=== PATIENT | female | born 1930 | race Hispanic/Latino ===

== ENCOUNTER 2016-11-22 07:20 | Inpatient (IN) | payer MEDICARE ==
[2016-11-22] MEDS ORDERED: DUONEB 0.5 MG-3 MG/3 ML SOLN IH ONE (07:53)
[2016-11-22] MEDS ORDERED: APRESOLINE IV ONE (07:55)
--- NOTE | 2016-11-22 07:55 | Emergency Department Report ---
HPI - General Chief Complaint: Dyspnea/Respdistress Time Seen by Provider: 11/22/16 07:40 - HPI HPI: This is a 86-year-old female who presents to the emergency department by EMS with complaint of shortness of breath that she says has been getting progressively worse over the past week. She denies any chest discomfort. Patient is a poor historian. She says she is from [place] but is visiting here because her son has recently. However the patient is on [place] and appears to have a history of dementia and is AAO [address] but not time. She is unable to recall her list of past medical history but on top of dementia and appears to include hypertension at least. Does not appear that the patient got any treatment by EMS other than some supplemental oxygen. Patient says her primary care doctor is back in [place]. ED Past Medical Hx - Past Medical History Hx Hypertension: Yes Hx Dementia: Yes - Medications Home Medications: Home Medications Medication Instructions Recorded Confirmed Last Taken Type Amlodipine Besylate [Norvasc] 2.5 mg PO DAILY 11/22/16 11/22/16 Unknown History Aspirin EC [Aspirin Enteric Coated 81 mg PO QDAY 11/22/16 11/22/16 Unknown History TAB] Atorvastatin Calcium [Lipitor] 20 mg PO QHS 11/22/16 11/22/16 Unknown History Benzonatate [Tessalon Perles] 200 mg PO Q8HR 11/22/16 11/22/16 Unknown History Carvedilol [Coreg] 12.5 mg PO BID 11/22/16 11/22/16 Unknown History Folic Acid [Folvite] 1 mg PO QDAY 11/22/16 11/22/16 Unknown History Furosemide [Lasix] 20 mg PO QDAY 11/22/16 11/22/16 Unknown History Isosorbide Dinitrate 30 mg PO BID 11/22/16 11/22/16 Unknown History Levothyroxine [Synthroid] 50 mcg PO QAM 11/22/16 11/22/16 Unknown History Loperamide [Imodium] 2 mg PO QDAY 11/22/16 11/22/16 Unknown History Memantine HCl [Namenda] 5 mg PO QDAY 11/22/16 11/22/16 Unknown History ED Review of Systems ROS: Stated complaint: SOB Other details as noted in HPI Comment: All other systems reviewed and negative Constitutional: denies: chills, fever Eyes: denies: eye pain, eye discharge, vision change ENT: denies: ear pain, throat pain Respiratory: cough, shortness of breath, wheezing Gastrointestinal: denies: abdominal pain, nausea, diarrhea Genitourinary: denies: urgency, dysuria, discharge Musculoskeletal: denies: back pain, joint swelling, arthralgia Skin: denies: rash, lesions Neurological: denies: headache, weakness, paresthesias Physical Exam - Physical Exam Vital Signs: Vital Signs 11/22/16 07:32 Temperature 97.7 F Pulse Rate 63 Blood Pressure 196/62 O2 Sat by Pulse 98 Oximetry Physical Exam: GENERAL: The patient is well-developed well-nourished. Patient is elderly appearing. HEENT: Normocephalic. Atraumatic. Extraocular motions are intact. Patient has moist mucous membranes. Pupils equal reactive to light bilaterally. NECK: Supple. Trachea is midline. CHEST/LUNGS: Coarse breath sounds throughout the chest. Patient has some tachypnea but no accessory muscle use. There is no respiratory distress noted. HEART/CARDIOVASCULAR: Regular. There is no tachycardia. There is no gallop rub or murmur. ABDOMEN: Abdomen is soft, nontender. Patient has normal bowel sounds. There is no abdominal distention. SKIN: There is no rash. There is no edema. There is no diaphoresis. NEURO: Patient is AAO [address] but not time. The patient is cooperative. The patient has no focal neurologic deficits. The patient has normal speech. MUSCULOSKELETAL: There is no tenderness or deformity. There is no limitation range of motion. There is no evidence of acute injury. ED Course Vital Signs 11/22/16 07:32 Temperature 97.7 F Pulse Rate 63 Blood Pressure 196/62 O2 Sat by Pulse 98 Oximetry ED Medical Decision Making - Lab Data Result diagrams: 11/22/16 08:04 11/22/16 08:04 - EKG Data -: EKG Interpreted by Me - EKG Data When compared to previous EKG there are: previous EKG unavailable Interpretation: other (ventricular paced rhythm, prolonged MO interval, no ST elevation IL) - Radiology Data Radiology results: report reviewed, image reviewed interpreted by me: Chest x-ray shows hyperinflation along and some signs of interstitial lung disease consistent with COPD. VQ scan is low probability for pulmonary embolism. It appears more consistent with COPD - Medical Decision Making 86-year-old female presents to the emergency department by EMS with some shortness of breath. Patient appears very wet with coarse breath sounds that he can hear without a stethoscope. She has some tachypnea but she does not have any accessory muscle use. Patient was given some breathing treatments and oxygen supplementation and appears improved at that time. Patient's labs show some renal insufficiency, elevated an equivocal d-dimer and a BNP of greater than 18,000. Chest x-ray appears more consistent with COPD without any obvious pneumonia, pneumothorax or pleural effusions. A VQ scan was done for the elevated d-dimer that was low probability for PE. First troponin negative. Patient will be admitted to hospital for further evaluation and treatment of her COPD exacerbation and possible CHF exacerbation as well. She has been accepted for admission by the hospitalist service. - Differential Diagnosis COPD, PE, IL, CHF, pneumonia Critical Care Time: No Critical care attestation.: If time is entered above; I have spent that time in minutes in the direct care of this critically ill patient, excluding procedure time. ED Disposition Clinical Impression: COPD exacerbation, Hypertensive urgency, Renal insufficiency CHF (congestive heart failure) Qualifiers: Congestive heart failure type: unspecified congestive heart failure type Congestive heart failure chronicity: unspecified congestive heart failure chronicity Qualified Code(s): I50.9 - Heart failure, unspecified Dyspnea Qualifiers: Dyspnea type: unspecified Qualified Code(s): R06.00 - Dyspnea, unspecified Disposition: OP ADMITTED IP TO THIS HOSP Is pt being admited?: Yes Does the pt Need Aspirin: Yes Condition: Stable Instructions: Chronic Obstructive Pulmonary Disease (ED) Time of Disposition: 13:03
[2016-11-22 08:58] LABS: Basophils % (Auto) 0.3 % (0.0-1.8); Eosinophils % (Auto) 0.7 % (0.0-4.3); Hematocrit 31.4 % (30.3-42.9); Hemoglobin 10.4 gm/dl (10.1-14.3); INR 1.06 (0.87-1.13); Mean Corpuscular HGB Conc 33 % (30-34); Mean Corpuscular Hemoglobin 32 pg (28-32); Mean Corpuscular Volume 97 fl (79-97); Platelet Count 159 K/mm3 (140-440); Red Blood Count 3.23 M/mm3 (3.65-5.03); Red Cell Distribution Width 14.1 % (13.2-15.2)
[2016-11-22 08:59] LABS: Partial Thromboplastin Time 35.6 Sec. (24.2-36.6)
[2016-11-22 09:05] LABS: Creatine Kinase MB 2.3 ng/mL (0.0-4.0)
[2016-11-22 09:08] LABS: Alanine Aminotransferase 15 units/L (7-56); Albumin 3.4 g/dL (3.9-5); Albumin/Globulin Ratio 1.2 %; Alkaline Phosphatase 104 units/L (35-129); BUN/Creatinine Ratio 16.15; Bilirubin,Total 0.7 mg/dL (0.1-1.2); Blood Urea Nitrogen 21 mg/dL (7-17); Calcium 8.7 mg/dL (8.4-10.2); Carbon Dioxide 28 mmol/L (22-30); Chloride 101.7 mmol/L (98-107); Creatine Kinase 58 units/L (30-135); Glucose 118 mg/dL (65-100); Potassium 4.7 mmol/L (3.6-5.0); Sodium 141 mmol/L (137-145); Total Protein 6.2 g/dL (6.3-8.2)
[2016-11-22 09:16] LABS: Anion Gap 16 mmol/L
[2016-11-22 10:20] LABS: Bilirubin,Urine NEG (Negative); Blood,Urine SM (Negative); Ketones,Urine NEG (Negative); Leukocyte Esterase,Urine NEG (Negative); Nitrite,Urine NEG (Negative); Protein,Urine <15 mg/dL mg/dL (Negative); Urobilinogen,Urine < 2.0 mg/dL (<2.0); WBC,Urine < 1.0 /HPF (0.0-6.0)
[2016-11-22] MEDS ORDERED: LASIX IV ONE (10:38)
--- NOTE | 2016-11-22 11:48 | Nuclear Medicine Report ---
FINAL REPORT PROCEDURE: NM LUNG SCAN PERF/VENT TECHNIQUE: Consent was obtained. 5 millicuries technetium 99 M MAA was injected IV and multiplanar perfusion images of the lungs obtained. 15 millicuries xenon 133 gas was inhaled and planar ventilatory images of the lungs were submitted for review. HISTORY: SOB, elevated dimer COMPARISON: Chest one view 11/22/2016 FINDINGS: Heterogeneity of perfusion radiotracer as well as partial retention of ventilatory radiotracer suggests an element of COPD. There is no mismatched perfusion abnormality to suggest pulmonary infarct. The heart is enlarged. IMPRESSION: Suggested mild cardiomegaly and COPD. Low probability for pulmonary embolism.
[2016-11-22] MEDS ORDERED: MAGNESIUM SULFATE 2GM/50ML 50 ML IV ONE (11:59)
--- NOTE | 2016-11-22 13:02 | XRay Report ---
FINAL REPORT PROCEDURE: XR CHEST 1V AP TECHNIQUE: Chest radiograph anteroposterior view. CPT 77117 HISTORY: Dyspnea COMPARISON: None FINDINGS: Intracardiac device is in place as well as prior median sternotomy noted. The heart is mildly enlarged. There is no focal consolidation, pneumothorax or pleural fluid. Mild increased interstitial markings and flattening of diaphragms is present. There is no focal osseous abnormality. IMPRESSION: Mild cardiomegaly and suspected mild COPD..
[2016-11-22] MEDS ORDERED: BABY ASPIRIN PO ONE (13:04)
--- NOTE | 2016-11-22 23:54 | History and Physical Report ---
History of Present Illness Chief complaint: Difficulty breathing History of present illness: 86 YO Female with HTN, Dementia, Obesity, Hypothyroid, CHF presents to ED for evaluation. Pt states that she has been experiencing shortness of breath for the past week with worsening symptoms over the last 12 hours. Pt denies fever, chills, CP, Palpitations, NVD, Syncope, unintentional weight loss, night sweats , prolonged immobility/travel, individual/family history of DVT/PE. Pt unable to provide very detailed history. Pt mildly confused. Past History Past Medical History: heart failure, hypertension, hypothyroidism Past Surgical History: No surgical history, Other (reviewed) Social history: . denies: smoking, alcohol abuse, prescription drug abuse Family history: hypertension Medications and Allergies Allergies Allergy/AdvReac Type Severity Reaction Status Date / Time No Known Allergies Allergy Verified 11/23/16 00:28 Home Medications Medication Instructions Recorded Confirmed Last Taken Type Amlodipine Besylate [Norvasc] 2.5 mg PO DAILY 11/22/16 11/22/16 Unknown History Aspirin EC [Aspirin Enteric Coated 81 mg PO QDAY 11/22/16 11/22/16 Unknown History TAB] Atorvastatin Calcium [Lipitor] 20 mg PO QHS 11/22/16 11/22/16 Unknown History Benzonatate [Tessalon Perles] 200 mg PO Q8HR 11/22/16 11/22/16 Unknown History Carvedilol [Coreg] 12.5 mg PO BID 11/22/16 11/22/16 Unknown History Folic Acid [Folvite] 1 mg PO QDAY 11/22/16 11/22/16 Unknown History Furosemide [Lasix] 20 mg PO QDAY 11/22/16 11/22/16 Unknown History Isosorbide Dinitrate 30 mg PO BID 11/22/16 11/22/16 Unknown History Levothyroxine [Synthroid] 50 mcg PO QAM 11/22/16 11/22/16 Unknown History Loperamide [Imodium] 2 mg PO QDAY 11/22/16 11/22/16 Unknown History Memantine HCl [Namenda] 5 mg PO QDAY 11/22/16 11/22/16 Unknown History Review of Systems ROS unobtainable: due to mental status Exam - Constitutional Vitals: Temp Pulse Resp BP Pulse Ox 97.8 F 81 12 126/54 98 11/22/16 19:45 11/22/16 19:45 11/22/16 19:45 11/22/16 19:45 11/22/16 19:45 General appearance: Present: no acute distress - EENT Eyes: Present: PERRL ENT: hearing intact, clear oral mucosa - Neck Neck: Present: supple, normal ROM - Respiratory Respiratory: bilateral: diminished - Cardiovascular Heart Sounds: Present: S1 & S2. Absent: rub, click - Extremities Extremities: pulses symmetrical, No edema Extremity abnormal: edema Peripheral Pulses: within normal limits - Abdominal General gastrointestinal: Present: soft, non-tender, non-distended, normal bowel sounds Female genitourinary: Present: normal - Integumentary Integumentary: Present: clear, warm, dry - Musculoskeletal Musculoskeletal: generalized weakness - Psychiatric Psychiatric: no intact judgment & insight, no memory intact - Neurologic Neurologic: CNII-XII intact, no gait normal Results - Labs CBC & Chem 7: 11/22/16 08:04 11/23/16 00:18 Labs: Abnormal lab results 11/22/16 11/22/16 11/22/16 Range/Units 08:04 08:04 08:04 RBC 3.23 L (3.65-5.03) M/mm3 [place] % (Auto) 9.9 H (0.0-7.3) % D-Dimer 685.14 H (0-234) ng/mlDDU BUN 21 H (7-17) mg/dL Creatinine 1.3 H (0.7-1.2) mg/dL Glucose 118 H (65-100) mg/dL NT-Pro-B Natriuret Pep (0-900) pg/mL Total Protein 6.2 L (6.3-8.2) g/dL Albumin 3.4 L (3.9-5) g/dL TSH (0.270-4.200) mlU/mL Urine pH (5.0-7.0) 11/22/16 11/22/16 11/22/16 Range/Units 08:04 08:43 10:09 RBC (3.65-5.03) M/mm3 [place] % (Auto) (0.0-7.3) % D-Dimer (0-234) ng/mlDDU BUN (7-17) mg/dL Creatinine (0.7-1.2) mg/dL Glucose (65-100) mg/dL NT-Pro-B Natriuret Pep 23312 H (0-900) pg/mL Total Protein (6.3-8.2) g/dL Albumin (3.9-5) g/dL TSH 5.790 H (0.270-4.200) mlU/mL Urine pH 8.0 H (5.0-7.0) Assessment and Plan - Patient Problems (1) CHF (congestive heart failure) Current Visit: Yes Status: Acute Qualifiers: Congestive heart failure type: unspecified congestive heart failure type Congestive heart failure chronicity: unspecified congestive heart failure chronicity Qualified Code(s): I50.9 - Heart failure, unspecified Plan to address problem: CHF protocol: serial cardiac enzymes, telemetry, fluid restriction, supportive card, echo, monitor uop q shift, daily weights. diuresisD dimer, CTA chest (2) COPD exacerbation Current Visit: Yes Status: Acute Plan to address problem: supplemental o2,nebs, steroids, supportive care. (3) Accelerated hypertension Current Visit: Yes Status: Acute Plan to address problem: monitor bp q shift, continue current care. (4) Dementia Current Visit: Yes Status: Acute Plan to address problem: Chronic: continue current medication. (5) Renal insufficiency Current Visit: Yes Status: Acute Plan to address problem: gentle IVF, supportive care. (6) DVT prophylaxis Current Visit: Yes Status: Acute
[2016-11-23] MEDS ORDERED: MILK OF MAGNESIA PO PRN (00:06)
[2016-11-23] MEDS ORDERED: ZOFRAN IV PRN (00:06)
[2016-11-23] MEDS ORDERED: DULCOLAX PR PRN (00:06)
[2016-11-23] MEDS ORDERED: TYLENOL PO PRN (00:06)
[2016-11-23] MEDS ORDERED: ZITHROMAX 500 MG in NACL 0.9% 250ML 250 ML IV ONE (00:12)
[2016-11-23 00:43] LABS: BUN/Creatinine Ratio 15.33; Calcium 9.2 mg/dL (8.4-10.2)
[2016-11-23 00:44] LABS: Chloride 94.7 mmol/L (98-107); Potassium 4.6 mmol/L (3.6-5.0)
--- NOTE | 2016-11-23 01:28 | Admit Criteria Form ---
Admission Criteria Documentation: HEART FAILURE: COMMON COMPLICATIONS Clinical Indications for Inpatient Care (Place 'X' for any and all applicable criteria): Ongoing inpatient care may be indicated for heart failure with ANY ONE of the following (1)(2)(3)(4)(5): [ ]I. Ongoing need for care for primary condition requiring frequent therapy adjustments because of changes in cardiac function (eg, drug dosage changes for drugs that are renally metabolized) [ ]II. New-onset heart failure [ ]III. Heart failure with decreased urine output not responsive to attempts to optimize volume status [ ]IV. Acute cardiac ischemia causing or associated with failure [X ]V. Complications of heart failure, including ANY ONE of the following: [ ]a) Pericardial effusion [ ]b) Symptomatic pleural effusion [ ]c) O2 saturation <90% or PO2 < 60 mm Hg (8.0 kPa) on room air or require baseline supplemental O2 [ ]d) Tachypnea [ X]e) Dyspnea [ ]f) Syncope [ ]g) Change in mental status [ ]h) Acute renal insufficiency that is severe (reduction of more than 50% in estimated glomerular filtration rate from baseline) or progressive reduction of more than 25% in estimated glomerular filtration rate from baseline, with creatinine continuing to rise) [ ]i) Hemodynamic instability [ ]j) Anasarca [ ]k) Clinically significant metabolic abnormalities due to heart failure (eg, new-onset metabolic acidosis) Extended stay beyond goal length of stay for primary condition may be needed until ALL of the following are present(1)(3): [ ]a) Stable and effective diuretic regimen established (or patient on stable dialysis regimen if in chronic renal failure) [ ]b) Breathing comfortably at rest [ ]c) Saturation of arterial oxygen greater than 90% or at acceptable baseline [ ]d) Pulmonary edema absent or improved [ ]e) Hemodynamic stability [ ]f) Volume status acceptable on oral medication [ ]g) Peripheral or sacral edema absent or improved [ ]h) Renal function stable and manageable at a lower level of care [ ]i) Complications (eg, pleural effusion) resolved or manageable at a lower level of care [ ]j) Patient or caregiver has received written discharge instructions or educational material addressing activity level, diet, discharge medications, follow-up appointment, weight monitoring, and what to do if symptoms worsen The original [email or web address] content created by [employer] has been revised. The portions of the content which have been revised are identified through the use of italic text or in bold, and [facility] has neither reviewed nor approved the modified material.All other unmodified content is copyright [facility]. Please see references footnoted in the original [facility] edition 2016 Admission Criteria Met: Yes
[2016-11-23] MEDS: SYNTHROID PO SCH (05:48)
[2016-11-23] MEDS: TESSALON PERLES PO SCH ×3 (05:48→21:34)
[2016-11-23] MEDS ORDERED: SODIUM CHLORIDE FLUSH SYRINGE 10 ML IV PRN (07:40)
[2016-11-23] MEDS ORDERED: LASIX IV ONE (09:00)
[2016-11-23 09:03] LABS: Creatine Kinase MB 1.6 ng/mL (0.0-4.0)
[2016-11-23 09:05] LABS: Creatine Kinase 42 units/L (30-135)
[2016-11-23] MEDS ORDERED: NON-FORMULARY (Isosorbide Dinitrate [Isosorbide Dinitrate] 30 MG) PO SCH (10:00)
[2016-11-23] MEDS ORDERED: LASIX PO SCH (10:00)
[2016-11-23] MEDS ORDERED: NON-FORMULARY (Amlodipine Besylate [Norvasc] 2.5 MG) PO SCH (10:00)
[2016-11-23] MEDS ORDERED: MEMANTINE HCL 5 MG PO SCH (10:00)
[2016-11-23] MEDS: COREG PO SCH ×2 (11:18→21:33)
[2016-11-23] MEDS: FOLVITE PO SCH (11:18)
[2016-11-23] MEDS: HALFPRIN EC PO SCH (11:18)
[2016-11-23] MEDS: IMODIUM PO SCH (11:19)
[2016-11-23] MEDS: NAMENDA XR PO SCH (11:20)
[2016-11-23] MEDS: NORVASC PO SCH (11:20)
[2016-11-23] MEDS: ISORDIL TITRADOSE PO SCH ×2 (11:20→21:33)
[2016-11-23] MEDS ORDERED: PNEUMOVAX 23 IM ONE (12:00)
[2016-11-23] MEDS ORDERED: FLUARIX QUAD 2016-2017(36 MOS+) IM ONE (12:00)
[2016-11-23 13:45] LABS: Creatine Kinase MB 1.7 ng/mL (0.0-4.0)
--- NOTE | 2016-11-23 14:53 | Progress Note ---
Assessment and Plan Assessment and plan: 1. Acute Exacerbation of congestive heart failure-type is unspecified, follow -up with echocardiogram. Continue IV Lasix for diuresis. Acute myocardial infarction ruled out based on negative troponin. 2. COPD with acute exacerbation-continue nebulization treatments and steroids; add brovana 3. Accelerated hypertension- BP improving; cont meds and adjust as needed 4. Dementia- stable; cotn meds 5. ACute renal failure due to vasomotor nephropathy-start IVF for hydration; monitor; avoid nephrotoxins 6. DVT prophylaxis- heparin Hospitalist Physical - Constitutional Vitals: Temp Pulse Resp BP Pulse Ox 98.4 F 62 22 163/72 97 11/23/16 11:20 11/23/16 11:20 11/23/16 11:20 11/23/16 11:20 11/23/16 11:20 General appearance: Present: no acute distress Results - Labs CBC & Chem 7: 11/22/16 08:04 11/23/16 00:18 Labs: Laboratory Last Values WBC 5.0 K/mm3 (4.5-11.0) 11/22/16 08:04 RBC 3.23 M/mm3 (3.65-5.03) L 11/22/16 08:04 Hgb 10.4 gm/dl (10.1-14.3) 11/22/16 08:04 Hct 31.4 % (30.3-42.9) 11/22/16 08:04 MCV 97 fl (79-97) 11/22/16 08:04 MCH 32 pg (28-32) 11/22/16 08:04 MCHC 33 % (30-34) 11/22/16 08:04 RDW 14.1 % (13.2-15.2) 11/22/16 08:04 Plt Count 159 K/mm3 (140-440) 11/22/16 08:04 Lymph % (Auto) 27.0 % (13.4-35.0) 11/22/16 08:04 [place] % (Auto) 9.9 % (0.0-7.3) H 11/22/16 08:04 Eos % (Auto) 0.7 % (0.0-4.3) 11/22/16 08:04 Baso % (Auto) 0.3 % (0.0-1.8) 11/22/16 08:04 Lymph # 1.3 K/mm3 (1.2-5.4) 11/22/16 08:04 [place] # 0.5 K/mm3 (0.0-0.8) 11/22/16 08:04 Eos # 0.0 K/mm3 (0.0-0.4) 11/22/16 08:04 Baso # 0.0 K/mm3 (0.0-0.1) 11/22/16 08:04 Seg Neutrophils % 62.1 % (40.0-70.0) 11/22/16 08:04 Seg Neutrophils # 3.1 K/mm3 (1.8-7.7) 11/22/16 08:04 PT 13.7 Sec. (12.2-14.9) 11/22/16 08:04 INR 1.06 (0.87-1.13) 11/22/16 08:04 APTT 35.6 Sec. (24.2-36.6) 11/22/16 08:04 D-Dimer 685.14 ng/mlDDU (0-234) H 11/22/16 08:04 Sodium 137 mmol/L (137-145) 11/23/16 00:18 Potassium 4.6 mmol/L (3.6-5.0) 11/23/16 00:18 Chloride 94.7 mmol/L (98-107) L 11/23/16 00:18 Carbon Dioxide 28 mmol/L (22-30) 11/23/16 00:18 Anion Gap 19 mmol/L 11/23/16 00:18 BUN 23 mg/dL (7-17) H 11/23/16 00:18 Creatinine 1.5 mg/dL (0.7-1.2) H 11/23/16 00:18 Estimated GFR 33 ml/min 11/23/16 00:18 BUN/Creatinine Ratio 15.33 % 11/23/16 00:18 Glucose 159 mg/dL (65-100) H 11/23/16 00:18 Lactic Acid 1.2 mmol/L (0.7-2.0) 11/22/16 08:04 Calcium 9.2 mg/dL (8.4-10.2) 11/23/16 00:18 Total Bilirubin 0.7 mg/dL (0.1-1.2) 11/22/16 08:04 AST 28 units/L (5-40) 11/22/16 08:04 ALT 15 units/L (7-56) 11/22/16 08:04 Alkaline Phosphatase 104 units/L (35-129) 11/22/16 08:04 Total Creatine Kinase 45 units/L (30-135) 11/23/16 13:06 CK-MB (CK-2) 1.7 ng/mL (0.0-4.0) 11/23/16 13:06 CK-MB (CK-2) Rel Index 3.7 (0-4) 11/23/16 13:06 Troponin T < 0.010 ng/mL (0.00-0.029) 11/23/16 10:40 NT-Pro-B Natriuret Pep 89397 pg/mL (0-900) H 11/22/16 08:04 Total Protein 6.2 g/dL (6.3-8.2) L 11/22/16 08:04 Albumin 3.4 g/dL (3.9-5) L 11/22/16 08:04 Albumin/Globulin Ratio 1.2 % 11/22/16 08:04 TSH 5.790 mlU/mL (0.270-4.200) H 11/22/16 10:09 Urine Color Straw (Yellow) 11/22/16 08:43 Urine Turbidity Clear (Clear) 11/22/16 08:43 Urine pH 8.0 (5.0-7.0) H 11/22/16 08:43 Ur Specific [place] 1.006 (1.003-1.030) 11/22/16 08:43 Urine Protein <15 mg/dl mg/dL (Negative) 11/22/16 08:43 Urine Glucose (UA) Neg mg/dL (Negative) 11/22/16 08:43 Urine Ketones Neg mg/dL (Negative) 11/22/16 08:43 Urine Blood Sm (Negative) 11/22/16 08:43 Urine Nitrite Neg (Negative) 11/22/16 08:43 Urine Bilirubin Neg (Negative) 11/22/16 08:43 Urine Urobilinogen < 2.0 mg/dL (<2.0) 11/22/16 08:43 Ur Leukocyte Esterase Neg (Negative) 11/22/16 08:43 Urine WBC (Auto) < 1.0 /HPF (0.0-6.0) 11/22/16 08:43 Urine RBC (Auto) 1.0 /HPF (0.0-6.0) 11/22/16 08:43 U Epithel Cells (Auto) < 1.0 /HPF (0-13.0) 11/22/16 08:43 lung scan -low probability; cardiomegaly
[2016-11-23] MEDS: LASIX IV SCH (17:23)
[2016-11-24] MEDS: LASIX IV SCH (06:37)
[2016-11-24] MEDS: SYNTHROID PO SCH (06:37)
[2016-11-24] MEDS: TESSALON PERLES PO SCH ×3 (06:37→21:26)
[2016-11-24 07:11] LABS: BUN/Creatinine Ratio 14.11; Calcium 8.4 mg/dL (8.4-10.2); Chloride 100.1 mmol/L (98-107); Potassium 4.1 mmol/L (3.6-5.0)
[2016-11-24] MEDS: COREG PO SCH ×2 (10:34→21:26)
[2016-11-24] MEDS: IMODIUM PO SCH (10:35)
[2016-11-24] MEDS: FOLVITE PO SCH (10:35)
[2016-11-24] MEDS: NAMENDA XR PO SCH (10:35)
[2016-11-24] MEDS: HALFPRIN EC PO SCH (10:35)
[2016-11-24] MEDS: ISORDIL TITRADOSE PO SCH ×2 (10:35→21:25)
[2016-11-24] MEDS: NORVASC PO SCH (10:37)
--- NOTE | 2016-11-24 12:46 | Echocardiography Report ---
Transthoracic Echocardiogram Indication: Eval LV Function BP: 129/87 Conclusions *1. LV function lower normal, EF 50%. *2. Severe LA dilatation. *3. Mod-severe MR. *4. Calcifiaed aortic valve with mild-moderate , mean gradient 17. *5. Moderate TR. *6. Severe pulm HTN, PASP 70. Findings Left Ventricle: The left ventricular chamber size is normal. Mild concentric left ventricular hypertrophy is observed. Global left ventricular wall motion and contractility are within normal limits. Global left ventricular systolic function is at the lower limits of normal. The estimated ejection fraction is 50-55%. Abnormal left ventricular diastolic filling is observed, consistent with impaired relaxation. Left Atrium: The left atrium is severely dilated. Right Ventricle: The right ventricular cavity size is normal. The right ventricular global systolic function is normal. A pacemaker wire is visualized in the right ventricle. Right Atrium: The right atrium is mild to moderately dilated. A pacemaker wire is visualized in the right atrium. The interatrial septum appears normal. Aortic Valve: The aortic valve is trileaflet. The aortic valve leaflets are moderately thickened. Moderate aortic leaflet calcification is visualized. Systolic excursion of the aortic valve cusps is reduced. There is trace of aortic regurgitation. There is mild to moderate aortic stenosis. The mean gradient of the aortic valve is 17 mmHg. Mitral Valve: The mitral valve leaflets appear myxomatous. There is mitral annular calcification. The mitral valve leaflets are moderately thickened. Mild mitral leaflet calcification is visualized. There is moderate to severe mitral regurgitation. There is no evidence of mitral stenosis. Tricuspid Valve: The tricuspid valve leaflets are normal. There is moderate tricuspid regurgitation. The right ventricular systolic pressure is calculated at 73 mmHg. There is evidence of severe pulmonary hypertension. There is no tricuspid stenosis. Pulmonic Valve: The pulmonic valve appears normal. There is trace pulmonic regurgitation. There is no pulmonic stenosis. Pericardium: There is no pericardial effusion. Aorta: There is no dilatation of the ascending aorta. There is no dilatation of the aortic root. Venous: The inferior vena cava appears normal in size. Measurements Chambers MM Name Value Normal Range Ao root diameter (MM) 3 cm (2 - 3.7) LA dimension (AP) MM 4.7 cm (1.9 - 4) LA:Ao ratio (MM) 1.57 ratio - AV cusp separation (MM) 1 cm (1.5 - 2.6) Chambers 2D Name Value Normal Range RVIDd (AP) 2D 3.48 cm (0.9 - 2.6) IVSd (2D) 1.04 cm (0.6 - 1.1) LVPWd (2D) 1.02 cm (0.6 - 1.1) IVS:LVPW ratio (2D) 1.02 ratio - LVIDd (2D) 4.28 cm (3.7 - 5.6) LVIDs (2D) 2.79 cm (2 - 3.8) LV FS (Teichholz) (2D) 34.8 % - LV FS (cube) (2D) 34.8 % - EF Teichholz (2D) 64.4 % - LA dimension (AP) 2D 4.8 cm (1.9 - 4) Volumes/Mass Name Value Normal Range LA ESV SP 4CH (MOD) 61 ml - LA ESV SP 2CH (MOD) 67 ml - LA ESV BP (MOD) 65 ml - LA ESV BP (MOD) index 45.5 ml/m2 - Diastolic/Systolic Function Name Value Normal Range MV E-wave Vmax 1.37 m/sec - MV deceleration time 165 msec - MV A-wave Vmax 1.27 m/sec - MV E:A ratio 1.1 ratio - LV septal e' Vmax 0.05 m/sec - LV lateral e' Vmax 0.08 m/sec - LV E:e' septal ratio 26.3 ratio - LV E:e' lateral ratio 16.9 ratio - Aortic Valve Name Value Normal Range AV VTI 57.8 cm - AV mean gradient 17 mmHg - LVOT diameter 2 cm - LVOT VTI 31.6 cm - LVOT mean gradient 5 mmHg - SV LVOT 99 ml - JIM (continuity VTI) 1.72 cm2 - Mitral Valve Name Value Normal Range MV PHT 46 msec - MR Vmax 7.12 m/sec - MR VTI 250 cm - MVA (PHT) 4.78 cm2 - Tricuspid Valve Name Value Normal Range TR Vmax 4.19 m/sec - TR peak gradient 70 mmHg - RAP 3 mmHg - RVSP 73 mmHg - Pulmonic Valve/Qp:Qs Name Value Normal Range PV Vmax 1.06 m/sec - PV peak gradient 4 mmHg - TN end-diastolic Vmax 1.4 m/sec - PV acceleration time 120 msec -
--- NOTE | 2016-11-24 15:19 | Progress Note ---
Hospitalist Physical - Constitutional Vitals: Temp Pulse Resp BP Pulse Ox 98.3 F 72 18 129/87 97 11/24/16 04:00 11/24/16 10:34 11/24/16 04:00 11/24/16 04:00 11/24/16 09:46 General appearance: Present: no acute distress Results - Labs CBC & Chem 7: 11/22/16 08:04 11/24/16 05:36 Labs: Laboratory Last Values WBC 5.0 K/mm3 (4.5-11.0) 11/22/16 08:04 RBC 3.23 M/mm3 (3.65-5.03) L 11/22/16 08:04 Hgb 10.4 gm/dl (10.1-14.3) 11/22/16 08:04 Hct 31.4 % (30.3-42.9) 11/22/16 08:04 MCV 97 fl (79-97) 11/22/16 08:04 MCH 32 pg (28-32) 11/22/16 08:04 MCHC 33 % (30-34) 11/22/16 08:04 RDW 14.1 % (13.2-15.2) 11/22/16 08:04 Plt Count 159 K/mm3 (140-440) 11/22/16 08:04 Lymph % (Auto) 27.0 % (13.4-35.0) 11/22/16 08:04 Lewis % (Auto) 9.9 % (0.0-7.3) H 11/22/16 08:04 Eos % (Auto) 0.7 % (0.0-4.3) 11/22/16 08:04 Baso % (Auto) 0.3 % (0.0-1.8) 11/22/16 08:04 Lymph # 1.3 K/mm3 (1.2-5.4) 11/22/16 08:04 Lewis # 0.5 K/mm3 (0.0-0.8) 11/22/16 08:04 Eos # 0.0 K/mm3 (0.0-0.4) 11/22/16 08:04 Baso # 0.0 K/mm3 (0.0-0.1) 11/22/16 08:04 Seg Neutrophils % 62.1 % (40.0-70.0) 11/22/16 08:04 Seg Neutrophils # 3.1 K/mm3 (1.8-7.7) 11/22/16 08:04 PT 13.7 Sec. (12.2-14.9) 11/22/16 08:04 INR 1.06 (0.87-1.13) 11/22/16 08:04 APTT 35.6 Sec. (24.2-36.6) 11/22/16 08:04 D-Dimer 685.14 ng/mlDDU (0-234) H 11/22/16 08:04 Sodium 143 mmol/L (137-145) 11/24/16 05:36 Potassium 4.1 mmol/L (3.6-5.0) 11/24/16 05:36 Chloride 100.1 mmol/L (98-107) 11/24/16 05:36 Carbon Dioxide 31 mmol/L (22-30) H 11/24/16 05:36 Anion Gap 16 mmol/L 11/24/16 05:36 BUN 24 mg/dL (7-17) H 11/24/16 05:36 Creatinine 1.7 mg/dL (0.7-1.2) H 11/24/16 05:36 Estimated GFR 29 ml/min 11/24/16 05:36 BUN/Creatinine Ratio 14.11 % 11/24/16 05:36 Glucose 85 mg/dL (65-100) 11/24/16 05:36 Lactic Acid 1.2 mmol/L (0.7-2.0) 11/22/16 08:04 Calcium 8.4 mg/dL (8.4-10.2) 11/24/16 05:36 Total Bilirubin 0.7 mg/dL (0.1-1.2) 11/22/16 08:04 AST 28 units/L (5-40) 11/22/16 08:04 ALT 15 units/L (7-56) 11/22/16 08:04 Alkaline Phosphatase 104 units/L (35-129) 11/22/16 08:04 Total Creatine Kinase 45 units/L (30-135) 11/23/16 13:06 CK-MB (CK-2) 1.7 ng/mL (0.0-4.0) 11/23/16 13:06 CK-MB (CK-2) Rel Index 3.7 (0-4) 11/23/16 13:06 Troponin T < 0.010 ng/mL (0.00-0.029) 11/23/16 10:40 NT-Pro-B Natriuret Pep 00783 pg/mL (0-900) H 11/22/16 08:04 Total Protein 6.2 g/dL (6.3-8.2) L 11/22/16 08:04 Albumin 3.4 g/dL (3.9-5) L 11/22/16 08:04 Albumin/Globulin Ratio 1.2 % 11/22/16 08:04 TSH 5.790 mlU/mL (0.270-4.200) H 11/22/16 10:09 Urine Color Straw (Yellow) 11/22/16 08:43 Urine Turbidity Clear (Clear) 11/22/16 08:43 Urine pH 8.0 (5.0-7.0) H 11/22/16 08:43 Ur Specific [place] 1.006 (1.003-1.030) 11/22/16 08:43 Urine Protein <15 mg/dl mg/dL (Negative) 11/22/16 08:43 Urine Glucose (UA) Neg mg/dL (Negative) 11/22/16 08:43 Urine Ketones Neg mg/dL (Negative) 11/22/16 08:43 Urine Blood Sm (Negative) 11/22/16 08:43 Urine Nitrite Neg (Negative) 11/22/16 08:43 Urine Bilirubin Neg (Negative) 11/22/16 08:43 Urine Urobilinogen < 2.0 mg/dL (<2.0) 11/22/16 08:43 Ur Leukocyte Esterase Neg (Negative) 11/22/16 08:43 Urine WBC (Auto) < 1.0 /HPF (0.0-6.0) 11/22/16 08:43 Urine RBC (Auto) 1.0 /HPF (0.0-6.0) 11/22/16 08:43 U Epithel Cells (Auto) < 1.0 /HPF (0-13.0) 11/22/16 08:43 ECHO-EF 50% mod-severe MR; severe pulmonary HTN
--- NOTE | 2016-11-24 15:53 | Discharge Summary ---
Providers - Providers Date of Admission: 11/23/16 00:06 Date of discharge: 11/24/16 Attending physician: DAVIE WEBSTER 11/23/16 Consult to Cardiac Rehabilitation [CONS] Routine Reason For Exam: Phase I Primary care physician: [employer] [employer] Hospitalization Reason for admission: chf exacerbation; copd exacerbation Condition: Stable Hospital course: Miss Max is a 86 yo F who presented to the ER with shortness of breath and was admitted with chf exacerbation and copd exacerbation; she was started on IV lasix and copd exacaerbation; her symptoms improved and she qualified for home oxygen; she was stable prior to discharge. condition at discharge-stable 31 minutes spent on discharge Disposition: DISCHARGED TO HOME OR SELFCARE - Discharge Diagnoses (1) Accelerated hypertension Status: Acute (2) CHF (congestive heart failure) Status: Acute Qualifiers: Congestive heart failure type: unspecified congestive heart failure type Congestive heart failure chronicity: unspecified congestive heart failure chronicity Qualified Code(s): I50.9 - Heart failure, unspecified (3) COPD exacerbation Status: Acute (4) Dementia Status: Chronic Core Measure Documentation - Palliative Care Palliative Care/ Comfort Measures: Not Applicable - Core Measures Any of the following diagnoses?: heart failure - Heart Failure Discharge Requirements SHERRY/ARB for LVSD if EF <40%: No Reason for no SHERRY/ARB: Renal impairment Beta horace at discharge: Yes Exam - Constitutional Vitals: Temp Pulse Resp BP Pulse Ox 98.3 F 72 18 129/87 97 11/24/16 04:00 11/24/16 10:34 11/24/16 04:00 11/24/16 04:00 11/24/16 09:46 General appearance: Present: no acute distress (on [place] oxygen) - EENT Eyes: Present: PERRL, EOM intact. Absent: scleral icterus, conjunctival injection ENT: hearing intact, clear oral mucosa, no oropharyngeal erythema, no poor dentition - Neck Neck: Present: supple. Absent: enlarged thyroid, masses or JVD - Respiratory Respiratory effort: normal Respiratory: bilateral: diminished, negative: rales, rhonchi, wheezing - Cardiovascular Rhythm: regular Heart Sounds: Present: S1 & S2. Absent: gallop - Extremities Extremities: no ischemia, pulses intact, pulses symmetrical, No edema Peripheral Pulses: within normal limits - Abdominal General gastrointestinal: Present: soft, non-tender, non-distended Female genitourinary: Present: deferred - Rectal Rectal Exam: deferred - Integumentary Integumentary: Present: clear - Musculoskeletal Musculoskeletal: strength equal bilaterally - Psychiatric Psychiatric: appropriate mood/affect, intact judgment & insight - Neurologic Neurologic: CNII-XII intact, moves all extremities Plan Activity: advance as tolerated Diet: low salt Special Instructions: home oxygen via (2 L [place]) Follow up with: PRIMARY CARE, [Primary Care Provider] - 3-5 Days
[2016-11-25] MEDS: SYNTHROID PO SCH (05:55)
[2016-11-25] MEDS: TESSALON PERLES PO SCH ×3 (05:55→22:50)
[2016-11-25] MEDS: COREG PO SCH ×2 (09:49→22:50)
[2016-11-25] MEDS: NORVASC PO SCH (09:49)
[2016-11-25] MEDS: HALFPRIN EC PO SCH (11:32)
[2016-11-25] MEDS: ISORDIL TITRADOSE PO SCH ×2 (11:32→22:50)
[2016-11-25] MEDS: FOLVITE PO SCH (11:32)
[2016-11-25] MEDS: IMODIUM PO SCH (11:32)
[2016-11-25] MEDS: NAMENDA XR PO SCH (11:33)
[2016-11-26] MEDS: SYNTHROID PO SCH (06:40)
[2016-11-26] MEDS: TESSALON PERLES PO SCH (06:40)
[2016-11-26 09:31] VITALS: BP 156/70
[2016-11-26] MEDS: FOLVITE PO SCH (09:47)
[2016-11-26] MEDS: COREG PO SCH (09:47)
[2016-11-26] MEDS: HALFPRIN EC PO SCH (09:47)
[2016-11-26] MEDS: IMODIUM PO SCH (09:47)
[2016-11-26] MEDS: NAMENDA XR PO SCH (09:48)
[2016-11-26] MEDS: NORVASC PO SCH (09:48)
[2016-11-26] MEDS: ISORDIL TITRADOSE PO SCH (09:48)
== END 2016-11-26 10:20 | disposition home or self-care (01) | DRG 291 ==
LOC: ED 07:20 → 4A 11-23 00:06
PROVIDERS: ADMIT Internal Medicine; ATTEND Hospitalist
DX: I11.0 Hypertensive heart disease with heart failure (principal); N17.0 Acute kidney failure with tubular necrosis; J44.1 Chronic obstructive pulmonary disease with (acute) exacerbation; I16.0 Hypertensive urgency; F03.90 Unspecified dementia, unspecified severity, without behavioral disturbance, psychotic disturbance, mood disturbance, and anxiety; E03.9 Hypothyroidism, unspecified; E66.9 Obesity, unspecified; I50.9 Heart failure, unspecified; Z79.82 Long term (current) use of aspirin; Z82.49 Family history of ischemic heart disease and other diseases of the circulatory system; Z68.24 Body mass index [BMI] 24.0-24.9, adult
CPT/HCPCS: 36415; 71010; 78582; 80048; 80053; 81001; 82140; 82550; 82553; 83880; 84443; 84484; 85025; 85379; 85610; 85730; 90686; 90732; 93005; 93010; 93306; 94640; 94760; 96365; 96367; 96375; A9270-GY; A9540; A9558; J0360; J0456; J1940; J2920; J2930; J3475; J7050